=== PATIENT | female | born 1980 | race Caucasian/White ===

== ENCOUNTER 2019-04-10 19:10 | Emergency (ER) | payer BC ==
[2019-04-10] MEDS ORDERED: diphenhydrAMINE 25 MG CAPSULE PO STA (20:57)
[2019-04-10] MEDS ORDERED: DEXAMETHASONE 10 MG/ML VIAL PO STA (20:57)
[2019-04-10] MEDS ORDERED: CHERRY SYRUP 10 ML UDC PO ONE (20:57)
[2019-04-10 21:21] LABS: ALBUMIN 4.1 g/dL (3.2-5.5); ALBUMIN/GLOBULIN RATIO 1.2 (1.0-2.2); BILIRUBIN,TOTAL 0.6 mg/dL (0.2-1.0); CALCIUM 9.6 mg/dL (8.5-10.3); CREATININE 0.9 mg/dL (0.4-1.0); TOTAL PROTEIN 7.4 g/dL (6.7-8.2)
--- NOTE | 2019-04-10 21:41 | ED Physician Documentation ---
PD HPI HEENT - Stated complaint Stated Complaint: HIGH BP/L EYE VISION CHANGE - Chief complaint Chief Complaint: Heent - History obtained from History obtained from: Patient - History of Present Illness Timing - onset: How many hours ago (few), Today Timing - duration: Hours (few) Timing - details: Abrupt onset, Still present Location: Other (she says she is seeing small black spots swarming around peripheral area of left eye visual field. No flashing lights. Also an appearance of some fluffy clouds/blurring at edge. The black spots are fast moving and swirling like a bunch of small bugs, per patient. She is having some pain in left neck develop after and persists. No general headache. She took her BP and noted it to be elevated. She has been taking her usual meds.) Worsens: No: Noise, Position Associated symptoms: Congestion (has some feeling of pressure around the left eye, and has noted some popping of left ear c/w fluid/congestion. No teeth pain. Some clear nasal drainage, not purulent.). No: Fever Similar symptoms before: Has not had sx before Recently seen: Not recently seen Review of Systems Constitutional: denies: Fever, Chills, Myalgias Eyes: denies: Loss of vision, Decreased vision (but with the spots and blurring peripherally left eye) Ears: reports: Loss of hearing (somewhat lessened and with popping of left ear at times.). denies: Ear pain, Drainage/discharge Nose: reports: Congestion, Sinus pressure / pain (left periorbital). denies: Rhinorrhea / runny nose Throat: denies: Dental pain / toothache, Sore throat Cardiac: denies: Chest pain / pressure, Palpitations Respiratory: denies: Dyspnea, Cough GI: denies: Nausea, Vomiting, Diarrhea Skin: denies: Rash, Lesions Musculoskeletal: reports: Neck pain. 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 HEENT: Tonsil/Adenoidectomy - Present Medications Home Medications: Ambulatory Orders Medication Instructions Recorded Confirmed Bupropion HCl [Wellbutrin Xl] 1 tab DAILY 04/10/19 04/10/19 Cetirizine [ZyrTEC] 10 mg PO DAILY #15 tablet 04/10/19 Metoprolol Tartrate 1 tab DAILY 04/10/19 04/10/19 Omeprazole 1 tab DAILY 04/10/19 04/10/19 Spironolactone 1 tab DAILY 04/10/19 04/10/19 amLODIPine [Norvasc] 5 mg DAILY 04/10/19 04/10/19 dexAMETHasone [Decadron] 4 mg PO DAILY #5 tablet 04/10/19 - Allergies Allergies/Adverse Reactions: Allergies Allergy/AdvReac Type Severity Reaction Status Date / Time astemizole [From Hismanal] Allergy Unknown Verified 04/10/19 19:23 Gadolinium-Containing Allergy Unknown Verified 04/10/19 19:23 Contrast Medi sumatriptan [From Imitrex] Allergy Unknown Verified 04/10/19 19:23 lisinopril AdvReac Unknown Verified 04/10/19 19:23 - Social History Does the pt smoke?: No Smoking Status: Never smoker Does the pt drink ETOH?: Yes ETOH Use: Wine, Beer, Liquor Does the pt have substance abuse?: No - Immunizations Immunizations are current?: No Immunizations: TDAP >10years/unknown - POLST Patient has POLST: No PD ED PE NORMAL - Vitals Vital signs reviewed: Yes - General General: Alert and oriented X 3, No acute distress, Well developed/nourished - HEENT HEENT: Atraumatic, PERRL, EOMI, Ears normal, Moist mucous membranes, Pharynx benign, Other (eye exam with normal chambers, clear fluid, no noted floaters. The fundus is normal to the periphery on both eyes. Normal optic disc. ) - Neck Neck: Supple, no meningeal sign, No adenopathy - Cardiac Cardiac: RRR, No murmur - Respiratory Respiratory: Clear bilaterally - Derm Derm: Normal color, Warm and dry, No rash - Neuro Neuro: Alert and oriented X 3, cotton grader 2-12 intact, No motor deficit, No sensory deficit, Normal speech, Other Eye Opening: Spontaneous Motor: Obeys Commands Verbal: Oriented GCS Score: 15 Results - Vitals Vitals: Vital Signs - 24 hr 04/10/19 04/10/19 04/10/19 19:14 20:25 22:00 Temperature 36.8 C Heart Rate 100 80 73 Respiratory 16 16 16 Rate Blood Pressure 180/111 H 153/104 H 137/96 H O2 Saturation 99 100 100 Oxygen O2 Source Room air - Labs Labs: Laboratory Tests 04/10/19 04/10/19 21:05 21:05 ESR 7 Sodium 139 Potassium 3.7 Chloride 102 Carbon Dioxide 28 Anion Gap 9.0 BUN 15 Creatinine 0.9 Estimated GFR (MDRD) 71 L Glucose 111 H Calcium 9.6 Magnesium 2.0 Total Bilirubin 0.6 AST 20 ALT 24 Alkaline Phosphatase 45 Total Protein 7.4 Albumin 4.1 Globulin 3.3 Albumin/Globulin Ratio 1.2 Lipase 32 PD MEDICAL DECISION MAKING - ED course Complexity details: re-evaluated patient (BP down to 153/100 without intervention. Symptoms have remained. Will treat as sinus pressure for now. ), considered differential (no focal weakness. No loss of vision, but has spots and blurring left laterally. Eye exam is good. Has some sinus and eustachian tube symptoms. Consider sinus pressure effect on orbit/eye, or possibly opthalmic migraine. Doubt ICH, cerebrovascular, or direct HTN effect. Presume the HTN is secondary. ), d/w patient Departure - Departure Disposition: 01 Home, Self Care Clinical Impression: Elevated blood pressure reading in office with diagnosis of hypertension, Abnormal visual perception Sinusitis Qualifiers: Sinusitis location: unspecified location Chronicity: acute Recurrence: non-recurrent Qualified Code(s): J01.90 - Acute sinusitis, unspecified Condition: Stable Record reviewed to determine appropriate education?: Yes Instructions: ED Sinusitis No Abx Prescriptions: Cetirizine [ZyrTEC] 10 mg PO DAILY #15 tablet dexAMETHasone [Decadron] 4 mg PO DAILY #5 tablet Comments: Your electrolytes are good so continue with your usual blood pressure medicines. Recheck your blood pressure once or twice daily over the next few days and see what the trend of it is. It sounds like there is likely some sinus inflammation or congestion on the left side there. This could be causing some pressure on the eye with some of the visual abnormality. Alternatively your symptoms sound somewhat like an ocular migraine. Take a basic antihistamine daily for the next week or 2 and daily Decadron steroid anti-inflammatory to help with some of the sinus congestion. Recheck if not improved over the next couple of days and return sooner if worsening symptoms or new symptoms develop. Discharge Date/Time: 04/10/19 22:01
[2019-04-10 22:01] VITALS: BP 137/96
== END 2019-04-10 22:01 | disposition home or self-care (01) ==
LOC: ED 19:10
DX: H53.8 Other visual disturbances (principal); I10 Essential (primary) hypertension; J01.90 Acute sinusitis, unspecified
CPT/HCPCS: 36415; 80053; 83690; 83735; 85651; 99283; 99284; A9270

== ENCOUNTER 2019-12-20 16:23 | Outpatient (CLI) | payer BC | END 2019-12-20 16:24 | disposition home or self-care (01) | LOC: COV 16:23 | PROVIDERS: ATTEND Family Medicine | DX: Z20.828 Contact with and (suspected) exposure to other viral communicable diseases (principal) ==

== ENCOUNTER 2022-05-25 08:00 | Outpatient (CLI) | payer BC ==
[2022-05-25 21:06] LABS: ESTIMATED AVERAGE GLUCOSE 94 mg/dL (70-100); HEMOGLOBIN A1c% 4.9 % (4.27-6.07)
== END 2022-05-25 23:59 | disposition home or self-care (01) ==
LOC: LAB 08:00
PROVIDERS: ATTEND Nurse Practitioner
DX: E88.81 Metabolic syndrome and other insulin resistance (principal)
CPT/HCPCS: 36415; 83036

== ENCOUNTER 2022-08-16 12:41 | Outpatient (CLI) | payer BC ==
--- NOTE | 2022-08-16 16:15 | Ultrasound Report ---
PROCEDURE: Head or Neck Soft Tissue INDICATIONS: Right thyroid nodule described in report for prior CT neck. TECHNIQUE: Real-time scanning was performed of the thyroid gland, with image documentation. COMPARISON: No prior thyroid ultrasounds available. FINDINGS: Right: Thyroid lobe measures 5.6 x 1.8 x 2.4 cm, and is homogeneous in echotexture. Left: Thyroid lobe measures 4.6 x 1.5 x 2.0 cm, and is homogenous in echotexture. Isthmus: 3 mm thick. Nodule number: One Location: Right lobe mid Size: 1.5 x 1.5 x 1.5 cm. Composition: Solid (2 points). Echogenicity: Isoechoic (1 point). Shape: wider than tall. Margins: Smooth (0 points). Echogenic foci: None (0 points). Total points: 3 ACR TI-RADS category: Mildly suspicious (3 points). Nodule number: Two Location: Right lobe inferior Size: 0.8 x 0.6 x 0.7 cm. Composition: Mixed cystic and solid (1 point). Echogenicity: Isoechoic (1 point). Shape: wider than tall. Margins: Smooth (0 points). Echogenic foci: None (0 points). Total points: 2 ACR TI-RADS category: Not suspicious (2 points). Nodule number: Three Location: Right lobe inferior Size: 0.7 x 0.4 x 0.5 cm. Composition: Mixed cystic and solid (1 point). Echogenicity: Hypoechoic (2 points). Shape: wider than tall. Margins: Smooth (0 points). Echogenic foci: None (0 points). Total points: 3 ACR TI-RADS category: Mildly suspicious (3 points). Nodule number: Four Location: Right lobe inferior Size: 1.0 x 0.6 x 0.8 cm. Composition: Mixed cystic and solid (1 point). Echogenicity: Hypoechoic (2 points). Shape: wider than tall. Margins: Smooth (0 points). Echogenic foci: None (0 points). Total points: 3 ACR TI-RADS category: Mildly suspicious (3 points). A 1.1 cm coarse calcification is also present at the right lobe. IMPRESSION: Several thyroid nodules present as above. None meet TI-RADS criteria for FNA recommendation. Follow-u p is recommended as below. ACR TI-RADS definitions and recommendations: TI-RADS 1 (benign): 0 points. FNA not needed. TI-RADS 2 (not suspicious): 2 points. FNA not needed. TI-RADS 3 (mildly suspicious): 3 points. "FNA if 2.5 cm or larger, follow up if 1.5 cm or larger (at 1, 3, and 5 years). TI-RADS 4 (moderately suspicious): 4-6 points. "FNA if 1.5 cm or larger, follow up if 1 cm or larger (at 1, 2, 3, and 5 years). TI-RADS 5 (highly suspicious): 7 points or more. "FNA if 1 cm or larger, follow up if 0.5 cm or larger (every year for 5 years). Reviewed by: Jimbo Bowser MD on 08/16/2022 4:14 PM PDT Approved by: Jimbo Bowser MD on 08/16/2022 4:14 PM PDT Station ID: [id number]
== END 2022-08-16 12:42 | disposition home or self-care (01) ==
LOC: DI 12:41
PROVIDERS: ATTEND Nurse Practitioner
DX: E04.2 Nontoxic multinodular goiter (principal)

== ENCOUNTER 2022-11-04 14:14 | Outpatient (CLI) | payer BC ==
[2022-11-04 14:34] LABS: HCT - HEMATOCRIT 40.9 % (37.0-47.0); HGB - HEMOGLOBIN 13.5 g/dL (12.0-16.0); MEAN CORPUSCULAR HEMOGLOBIN 32.7 pg (27.0-31.0); MEAN PLATELET VOLUME 10.4 fL (7.9-10.8); RED BLOOD COUNT 4.13 10^6/uL (4.20-5.40); RED CELL DISTRIBUTION WIDTH 13.2 % (12.0-15.0); WHITE BLOOD COUNT 9.4 x10^3/uL (4.8-10.8)
[2022-11-04 23:14] LABS: ESTIMATED AVERAGE GLUCOSE 103 mg/dL (70-100); HEMOGLOBIN A1c% 5.2 % (4.27-6.07)
== END 2022-11-04 14:15 | disposition home or self-care (01) ==
LOC: LAB 14:14
PROVIDERS: ATTEND Nurse Practitioner
DX: L65.9 Nonscarring hair loss, unspecified (principal); E88.81 Metabolic syndrome and other insulin resistance
CPT/HCPCS: 36415; 82728; 83036; 85027

== ENCOUNTER 2022-12-14 10:50 | Outpatient (CLI) | payer BC ==
[2022-12-14 11:57] LABS: THYROID STIMULATING HORMONE 3.61 uIU/mL (0.34-5.60)
== END 2022-12-14 10:51 | disposition home or self-care (01) ==
LOC: LAB 10:50
PROVIDERS: ATTEND Nurse Practitioner
DX: E04.1 Nontoxic single thyroid nodule (principal)
CPT/HCPCS: 36415; 84443

== ENCOUNTER 2023-01-14 14:58 | Outpatient (CLI) | payer BC ==
--- NOTE | 2023-01-16 10:58 | Mammography Report ---
BILATERAL DIGITAL SCREENING MAMMOGRAM 3D/2D: 01/14/2023 CLINICAL: Routine screening. Comparison is made to exam dated: 08/16/2020 mammogram - [facility]. There are scattered areas of fibroglandular density in both breasts (category b / 25%-50% glandular t issue). No significant masses, calcifications, or other findings are seen in either breast. IMPRESSION: NEGATIVE There is no mammographic evidence of malignancy. A 1 year screening mammogram is recommended. Based on the Tyrer Cuzick model (a risk assessment model) the patients lifetime risk is 5.7% and her 10 year risk is 0.7%. According to the ACR, ACS, and NCCN guidelines, an annual breast MRI exam aruna g with mammogram is recommended if the patients lifetime risk is 20% or greater. This exam was interpreted at Station ID: [id number]. NOTE: For mammograms, a report in lay terms will be sent to the patient. Approximately 15% of breast malignancies will not be visualized mammographically. In the management of a palpable breast mass, a negative mammogram must not discourage biopsy of a clinically suspicious lesion. Electronically Signed By: Erin Gee M.D., PH.D eb/penrad:01/15/2023 17:30:35 letter sent: No_Letter ACR BI-RADS Category 1: Negative 3341F PARENCHYMAL PATTERN: (A) - The breast(s) demonstrate(s) scattered fibroglandular densities. BI-RADS CATEGORY: (1) - 1 Mammogram [id number] 1 year screening LATERALITY: (B)
== END 2023-01-14 14:59 | disposition home or self-care (01) ==
LOC: DI 14:58
PROVIDERS: ATTEND Nurse Practitioner
DX: Z12.31 Encounter for screening mammogram for malignant neoplasm of breast (principal); R92.323 Mammographic fibroglandular density, bilateral breasts

== ENCOUNTER 2023-06-01 15:51 | Outpatient (CLI) | payer BC | END 2023-06-01 15:52 | disposition home or self-care (01) | LOC: LAB 15:51 | PROVIDERS: ATTEND Nurse Practitioner | DX: R07.89 Other chest pain (principal) | CPT/HCPCS: 36415; 85379 ==

== ENCOUNTER 2023-06-01 18:18 | Emergency (ER) | payer BC ==
[2023-06-01] MEDS ORDERED: iohexoL-300 100 ML VIAL ONE (19:06)
--- NOTE | 2023-06-01 19:06 | ED Physician Documentation ---
History of Present Illness - Stated complaint Stated Complaint: CHEST PX - Chief complaint Chief Complaint: Cardiac - History obtained from History obtained from: Patient - History of Present Illness Timing: How many days ago (10) Pain level max: 5 Pain level now: 5 - Additonal information Additional information: Patient is a 42-year-old female who presents to the emergency department stating that she has had right calf pain for about the last 10 days. She states this started after a trip to [facility] and a trip to [place]. She thinks that she may have strained it or twisted it. She saw her outpatient provider who ordered a D-dimer and was found to be mildly elevated today. Sent here for further eval uation. She also complains of pleuritic left-sided anterior chest pain. Described as sharp. Worse with movement and palpation. Nothing makes it better. No fevers. No cough. No congestion. She is not on OCPs. No history of blood clots. She is on spironolactone for hypertension, she states that she had increased bilateral lower extremity edema on her trip and so she did increase her spironolactone while she was on her trip. 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 HEENT: Tonsil/Adenoidectomy - Present Medications Home Medications: Ambulatory Orders Medication Instructions Recorded Confirmed Cetirizine [ZyrTEC] 10 mg PO DAILY #15 tablet 04/10/19 Metoprolol Tartrate 1 tab DAILY 04/10/19 04/10/19 Omeprazole 1 tab DAILY 04/10/19 04/10/19 Spironolactone 1 tab DAILY 04/10/19 04/10/19 amLODIPine [Norvasc] 5 mg DAILY 04/10/19 04/10/19 buPROPion HCL [Wellbutrin Xl] 1 tab DAILY 04/10/19 04/10/19 dexAMETHasone [Decadron] 4 mg PO DAILY #5 tablet 04/10/19 Lidocaine Viscous 2% [Xylocaine 5 ml PO Q4H PRN #100 ml 08/29/21 Viscous 2%] predniSONE [Deltasone] 20 mg PO [id number] #21 tab 08/29/21 - Allergies Allergies/Adverse Reactions: Allergies Allergy/AdvReac Type Severity Reaction Status Date / Time astemizole [From Hismanal] Allergy Unknown Verified 04/10/19 19:23 erythromycin base Allergy Unknown Verified 08/29/21 11:52 Gadolinium-Containing Allergy Hives Verified 06/01/23 18:58 Contrast Medi sumatriptan [From Imitrex] Allergy Anxiety Verified 06/01/23 18:58 escitalopram [From Lexapro] AdvReac Anxiety Verified 06/01/23 18:58 lisinopril AdvReac Respiratory Verified 06/01/23 18:58 - Social History Does the pt smoke?: No Smoking Status: Never smoker Does the pt drink ETOH?: Yes Does the pt have substance abuse?: No - Immunizations Immunizations are current?: No Immunizations: TDAP >10years/unknown - POLST Patient has POLST: No PD ED PE NORMAL - Vitals Vital signs reviewed: Yes - General General: Alert and oriented X 3, No acute distress - HEENT HEENT: Moist mucous membranes - Neck Neck: Supple, no meningeal sign - Cardiac Cardiac: RRR, No murmur, Strong equal pulses - Respiratory Respiratory: No respiratory distress, Clear bilaterally - Abdomen Abdomen: Soft, Non tender, Non distended - Derm Derm: Warm and dry, No rash - Extremities Extremities: No edema, No calf tenderness / cord - Neuro Neuro: Alert and oriented X 3 - Psych Psych: Normal mood, Normal affect Results - Vitals Vitals: Vital Signs - 24 hr 06/01/23 06/01/23 06/01/23 18:37 20:21 21:21 Temperature 36.4 C L Heart Rate 76 73 75 Respiratory 18 16 16 Rate Blood Pressure 143/98 H 123/74 131/93 H O2 Saturation 99 97 99 Oxygen O2 Source Room air - EKG (time done) 1831 EKG releavant findings:: EKG personally interpreted by author of this note. Relevant findings are: Rate: Rate (enter#) (77) Rhythm: NSR [place]: Normal Intervals: Normal [place] QRS: Normal Ischemia: Normal ST segments - Labs Labs: Laboratory Tests 06/01/23 06/01/23 19:05 19:05 WBC 4.6 L RBC 4.33 Hgb 13.9 Hct 42.3 MCV 97.7 MCH 32.1 H MCHC 32.9 RDW 12.3 Plt Count 187 MPV 10.7 Neut # (Auto) 2.6 Lymph # (Auto) 1.4 L [place] # (Auto) 0.5 Eos # (Auto) 0.2 Baso # (Auto) 0.0 Absolute Nucleated RBC 0.00 Nucleated RBC % 0.0 Sodium 136 Potassium 3.9 Chloride 103 Carbon Dioxide 27 Anion Gap 6.0 BUN 14 Creatinine 1.0 Estimated GFR (MDRD) 61 L Glucose 94 Calcium 9.7 Total Bilirubin 0.4 AST 15 ALT 15 Alkaline Phosphatase 48 Troponin I High Sens < 2.3 L Total Protein 7.0 Albumin 4.1 Globulin 2.9 Albumin/Globulin Ratio 1.4 Lipase 28 - Rads (name of study) CT pulmonary angiogram Relevant Findings:: Final report received, See rad report Duplex ultrasound right lower extremity Relevant Findings:: Final report received, See rad report PD Medical Decision Making - ED course Complexity details: reviewed results, re-evaluated patient, considered differential (No ST elevation [place], no aortic dissection, no PE, no tension pneumothorax, no aortic aneurysm), d/w patient ED course: No acute abnormalities on laboratory testing, EKG, CT pulmonary angiogram or duplex ultrasound of the right lower extremity. No DVT, PE. No aortic dissecti on. Possible that her pain is related to her eosinophilic esophagitis. Recommend that she follow-up with GI for further care. No tachycardia, hypoxia, etc. Patient counseled regarding signs and symptoms for which I believe and urgent re-evaluation would be necessary. Patient with good understanding of and agreement to plan and is comfortable going home at this time This document was made in part using voice recognition software. While efforts are made to proofread this document, sound alike and grammatical errors may occur. Departure - Departure Disposition: 01 Home, Self Care Clinical Impression: Chest pain Qualifiers: Chest pain type: unspecified Qualified Code(s): R07.9 - Chest pain, unspecified Calf pain Qualifiers: Laterality: right Qualified Code(s): M79.661 - Pain in right lower leg Condition: Good Instructions: ED Chest Pain NonCardiac Follow-Up: Maxine Perez ARNP [Primary Care Provider] - Comments: Please follow-up with your primary care provider for further care. You are ultrasound of your leg does not show any evidence of blood clot. The angiogram of your chest does not show any evidence of blood clots in your lungs. Your cardiac tests are negative. Likely that the chest pain is being caused by the eosinophilic esophagitis. Recommend that you follow-up with GI. Please return if you worsen. Forms: PCP List Discharge Date/Time: 06/01/23 21:21
[2023-06-01 19:09] LABS: BASOPHILS % (AUTO) 0.4 %; EOSINOPHILS # (AUTO) 0.2 10^3/uL (0.0-0.7); EOSINOPHILS % (AUTO) 3.7 %; HCT - HEMATOCRIT 42.3 % (37.0-47.0); HGB - HEMOGLOBIN 13.9 g/dL (12.0-16.0); LYMPHOCYTES # (AUTO) 1.4 10^3/uL (1.5-3.5); LYMPHOCYTES % (AUTO) 29.4 %; MEAN CORPUSCULAR HEMOGLOBIN 32.1 pg (27.0-31.0); MEAN CORPUSCULAR HGB CONC 32.9 g/dL (32.0-36.0); MEAN CORPUSCULAR VOLUME 97.7 fL (81.0-99.0); MEAN PLATELET VOLUME 10.7 fL (7.9-10.8); MONOCYTES # (AUTO) 0.5 10^3/uL (0.0-1.0); MONOCYTES % (AUTO) 11.2 %; NEUTROPHILS # (AUTO) 2.6 10^3/uL (1.5-6.6); NEUTROPHILS % (AUTO) 55.1 %; PLT - PLATELET COUNT 187 10^3/uL (130-450); RED BLOOD COUNT 4.33 10^6/uL (4.20-5.40); RED CELL DISTRIBUTION WIDTH 12.3 % (12.0-15.0); WHITE BLOOD COUNT 4.6 x10^3/uL (4.8-10.8)
[2023-06-01 19:26] LABS: ALBUMIN 4.1 g/dL (3.2-5.5); ALBUMIN/GLOBULIN RATIO 1.4 (1.0-2.2); ALKALINE PHOSPHATASE 48 IU/L (42-121); ALT ALANINE AMINOTRANSFERASE 15 IU/L (10-60); AST ASPARTATE AMINOTRANSFERASE 15 IU/L (10-42); BILIRUBIN,TOTAL 0.4 mg/dL (0.2-1.0); BUN - BLOOD UREA NITROGEN 14 mg/dL (6-20); CALCIUM 9.7 mg/dL (8.5-10.3); CARBON DIOXIDE - CO2 27 mmol/L (21-32); CHLORIDE 103 mmol/L (101-111); GFR - MDRD 61 (>89); GLUCOSE 94 mg/dL (74-104); LIPASE 28 U/L (11-82); POTASSIUM 3.9 mmol/L (3.5-4.5); SODIUM 136 mmol/L (135-145)
[2023-06-01 19:31] LABS: TROPONIN I HIGH SENSITIVITY < 2.3 ng/L (2.3-14.8)
[2023-06-01] MEDS: iohexoL-300 100 ML VIAL IVP ONE (19:52)
--- NOTE | 2023-06-01 20:33 | Ultrasound Report ---
PROCEDURE: Duplex Ext Veins Right INDICATIONS: R calf pain TECHNIQUE: Real-time imaging, as well as color and pulse Doppler interrogation, were performed of the lower extr emity deep veins from the inguinal ligament to the popliteal fossa. Attempted visualization of the ca lf veins was performed. COMPARISON: None. FINDINGS: The deep veins are normally compressible, and free of intraluminal thrombus. Color and pu lse Doppler demonstrate normal phasic intraluminal flow. There is normal augmentation response to di stal compression maneuver. IMPRESSION: No deep venous thrombosis of the visualized lower extremity. Reviewed by: Carter Marques MD on 06/01/2023 8:32 PM PDT Approved by: Carter Marques MD on 06/01/2023 8:32 PM PDT Station ID: [id number]
--- NOTE | 2023-06-01 20:42 | CT Report ---
PROCEDURE: Angio Chest INDICATIONS: sharp, L sided CP, elev d-dimer CONTRAST: 100 ML OMNI 300 TECHNIQUE: After the administration of intravenous contrast, 2 mm axial images were acquired from the pulmonary apices to the posterior costophrenic angles during the arterial phase. In addition, 1 mm lung kernel and 5 mm soft tissue kernel reconstructions were performed. 3-dimensional coronal oblique maximum int ensity projection (MIP) reformats, 8 mm axial MIP, and 5 mm coronal and sagittal MPR reformats were t hen performed through the thorax. For radiation dose reduction, the following was used: automated exp osure control, adjustment of mA and/or kV according to patient size. COMPARISON: None. FINDINGS: Image quality: Diagnostic. Large vessels: No filling defects within the opacified pulmonary arteries, accounting for motion and contrast timing. No evidence of acute aortic syndrome or aortic aneurysm. Lungs and pleura: No consolidation. No pleural effusions. No pneumothorax. No suspicious pulmonary n odules which require follow up. Mediastinum: Heart size is normal. No pericardial effusion. No large vessel abnormality. No mediastin al adenopathy by size criteria. Chest wall and lower neck: There is a large coarse calcification noted in the right thyroid lobe. No definite thyroid nodules or mass lesions. Thyroid gland is otherwise unremarkable. No axillary or sup raclavicular adenopathy by size. Bones: No aggressive osseous abnormality. Upper Abdomen: Unremarkable. IMPRESSION: No pulmonary embolus. No acute cardiopulmonary abnormalities. No focal airspace disease. Reviewed by: Sonu Allan MD on 06/01/2023 8:41 PM PDT Approved by: Sonu Allan MD on 06/01/2023 8:41 PM PDT Station ID: [id number]
[2023-06-01 21:27] VITALS: BP 131/93; O2SAT 99
== END 2023-06-01 21:21 | disposition home or self-care (01) ==
LOC: ED 18:18
DX: R07.89 Other chest pain (principal); M79.661 Pain in right lower leg; I10 Essential (primary) hypertension
CPT/HCPCS: 36415; 71275; 80053; 83690; 84484; 85025; 85379; 93005; 93971; 99284; Q9967

== ENCOUNTER 2023-07-22 08:22 | Outpatient (CLI) | payer BC ==
--- NOTE | 2023-07-22 14:29 | MRI Report ---
PROCEDURE: Pelvis WO INDICATIONS: COCCYDYNIA TECHNIQUE: Noncontrast coronal T1 spin echo and STIR through the bony pelvis. Sagittal T2 FSE with fat saturati on, oblique axial PD FSE and T2 FSE with fat saturation through the symphysis pubis. COMPARISON: None. FINDINGS: Image quality: Excellent. Bony structures: No focal bone marrow edema around the symphysis pubis. . There is mild T2 signal el evation within the coccyx. Moderate ill-defined T2 signal elevation within the surrounding soft tissu es is present. No displaced fracture. Soft tissues: Visualized musculature within normal limits. Visualized vasculature and bowel loops are within normal limits. IMPRESSION: 1. Edema within the coccyx and surrounding soft tissues, consistent with coccydynia. Differential con strictions include contusion versus stress injury. Reviewed by: Elizabeth Fall MD on 07/22/2023 2:28 PM PDT Approved by: Elizabeth Fall MD on 07/22/2023 2:28 PM PDT Station ID: [id number]
== END 2023-07-22 08:23 | disposition home or self-care (01) ==
LOC: DI 08:22
PROVIDERS: ATTEND Nurse Practitioner
DX: M53.3 Sacrococcygeal disorders, not elsewhere classified (principal)

== ENCOUNTER 2023-10-17 07:25 | Outpatient (CLI) | payer BC ==
[2023-10-17 07:45] LABS: BASOPHILS % (AUTO) 0.1 %; EOSINOPHILS # (AUTO) 0.1 10^3/uL (0.0-0.7); EOSINOPHILS % (AUTO) 0.9 %; HCT - HEMATOCRIT 41.8 % (37.0-47.0); HGB - HEMOGLOBIN 13.5 g/dL (12.0-16.0); LYMPHOCYTES # (AUTO) 2.1 10^3/uL (1.5-3.5); LYMPHOCYTES % (AUTO) 30.5 %; MEAN CORPUSCULAR HEMOGLOBIN 31.1 pg (27.0-31.0); MEAN CORPUSCULAR HGB CONC 32.3 g/dL (32.0-36.0); MEAN CORPUSCULAR VOLUME 96.3 fL (81.0-99.0); MEAN PLATELET VOLUME 10.7 fL (7.9-10.8); MONOCYTES # (AUTO) 0.6 10^3/uL (0.0-1.0); MONOCYTES % (AUTO) 9.3 %; NEUTROPHILS # (AUTO) 4.1 10^3/uL (1.5-6.6); NEUTROPHILS % (AUTO) 58.8 %; PLT - PLATELET COUNT 248 10^3/uL (130-450); RED BLOOD COUNT 4.34 10^6/uL (4.20-5.40); RED CELL DISTRIBUTION WIDTH 12.1 % (12.0-15.0); WHITE BLOOD COUNT 6.9 x10^3/uL (4.8-10.8)
[2023-10-17 07:55] LABS: INR 1.1 (0.8-1.2)
[2023-10-17 08:08] LABS: THYROID STIMULATING HORMONE 2.5 uIU/mL (0.34-5.60)
== END 2023-10-17 07:26 | disposition home or self-care (01) ==
LOC: LAB 07:25
PROVIDERS: ATTEND Nurse Practitioner
DX: E04.1 Nontoxic single thyroid nodule (principal); Z13.0 Encounter for screening for diseases of the blood and blood-forming organs and certain disorders involving the immune mechanism
CPT/HCPCS: 36415; 84443; 85025; 85610; 85730